=== PATIENT | female | born 1970 | race Caucasian/White ===

== ENCOUNTER 2018-09-10 18:18 | Emergency (ER) | payer SELFPAY ==
--- NOTE | 2018-09-10 18:34 | Emergency Department Record ---
History of Present Illness - General Chief complaint: ENT Stated complaint: SORE THROAT AND COLD Time Seen by Provider: 09/10/18 18:33 Source: Patient Mode of Arrival: Ambulatory Limitations: No limitations - History of Present Illness Initial comments: The patient is here due to a URI for 1 week. She has had a mild ST, nasal congestion, ear pain, and cough with sputum. There has been no fever, chills, CP , SOB, or IVONNE. MD complaint: Sore throat, Other Onset/Timin -: Week(s) Location: R ear, L ear Consistency: Constant Improves with: None Worsens with: None Associated Symptoms: Cough, Rhinorrhea, Sore throat - Related Data Previous Rx's Medication Instructions Recorded Azithromycin [Zithromax] 250 mg PO ASDIR #6 tab 09/10/18 Allergies Allergy/AdvReac Type Severity Reaction Status Date / Time No Known Drug Allergies Allergy Verified 09/10/18 18:31 Travel Screening - Travel/Exposure Within Last 30 Days Have you traveled within the last 30 days?: No Review of Systems Constitutional: Reports: Malaise. Denies: Chills, Fever Eyes: Denies: Eye discharge ENT: Reports: Congestion Respiratory: Reports: Cough. Denies: Dyspnea Past Medical History - SOCIAL HISTORY Smoking Status: Never smoker Alcohol Use: None Drug Use: None - RESPIRATORY Hx Respiratory Disorders: No - CARDIOVASCULAR Hx Cardio Disorders: No - NEURO Hx Neuro Disorders: No - GI Hx GI Disorders: No - Hx Genitourinary Disorders: No - ENDOCRINE Hx Endocrine Disorders: No - PSYCH Hx Psych Problems: No - HEMATOLOGY/ONCOLOGY Hx Hematology/Oncology Disorders: No Family Medical History Any Significant Family History?: No Physical Exam - General General Appearance: Alert, Oriented x3, Cooperative, No acute distress - Head Head exam: Atraumatic, Normocephalic, Normal inspection - Eye Eye exam: Normal appearance, PERRL, EOMI - ENT ENT exam: negative: Normal exam, TM's normal bilaterally (The L TM is normal but the R TM has an effusion present but no erythema.) Throat exam: Normal inspection. negative: Tonsillar erythema, Tonsillar exudate - Neck Neck exam: Normal inspection, Full ROM. negative: Lymphadenopathy, Meningismus , Tenderness - Respiratory Respiratory exam: Normal lung sounds bilaterally. negative: Respiratory distress - Cardiovascular Cardiovascular Exam: Regular rate, Normal rhythm, Normal heart sounds - Extremities Extremities exam: Normal inspection, Full ROM, Normal capillary refill. negative: Tenderness Course Vital Signs 09/10/18 18:32 Temperature 98.0 F Pulse Rate [ 83 Pulse Ox Probe] Respiratory 18 Rate Blood Pressure 132/83 [Left Arm] Pulse Ox 97 - Reevaluation(s) Reevaluation #1: I did explain to the patient that her constellation of symptoms are probably viral in origin but due to the length of the illness I will place the patient on a Zpak. 09/10/18 18:39 Disposition Disposition: Discharge Clinical Impression: URI, acute Disposition: Home, Self-Care Condition: (2) Stable Instructions: Acute Bronchitis (ED) Additional Instructions: Please continue the antihistamine and decongestants as needed and use Tylenol or Motrin for pain. Please take the Zpak as directed and see your family doctor if not better in 3 days. Prescriptions: Azithromycin [Zithromax] 250 mg PO ASDIR #6 tab Forms: Patient Portal Access Time of Disposition: 18:41 Quality - Quality Measures Quality Measures: N/A - Blood Pressure Screening View Details: Yes Does Patient Have Any of the Following: No Blood Pressure Classification: Pre-Hypertensive BP Reading Systolic Measurement: 122 Diastolic Measurement: 85 Screening for High Blood Pressure: < Pre-Hypertensive BP, F/U Documented > [ [id number]] Pre-Hypertensive Follow-up Interventions: Referral to alternative/primary care provider.
== END 2018-09-10 18:55 | disposition home or self-care (01) ==
LOC: ER 18:18
DX: J06.9 Acute upper respiratory infection, unspecified (principal)
CPT/HCPCS: 99282